=== PATIENT | female | born 1960 | race Caucasian/White ===

== ENCOUNTER → 2018-01-15 | Outpatient (CLI) | payer OTHER | LOC: SBRMNEURO 21:00 | PROVIDERS: ATTEND Internal Medicine Sleep Medicine | DX: G47.00 Insomnia, unspecified (principal) ==

== ENCOUNTER → 2019-02-08 | Outpatient (CLI) | payer OTHER | LOC: FIMAGING 11:49 | PROVIDERS: ATTEND Internal Medicine Endocrinology, Diabetes & Metabolism | DX: E21.3 Hyperparathyroidism, unspecified (principal) | CPT/HCPCS: 78070; A9500 ==